=== PATIENT | female | born 1960 | race Two or more races ===

== ENCOUNTER 2018-02-01 17:01 | Emergency (ER) | payer OTHER ==
[~2018-02-01] VITALS: Ht 154.9 cm; Wt 45.9 kg
[2018-02-01] MEDS ORDERED: MEDROL DOSEPAK4 MG PO (20:34)
[2018-02-01] MEDS ORDERED: ROBAXIN750 MG PO (20:34)
[2018-02-01 22:47] VITALS: BP 126/74
== END 2018-02-01 22:48 | disposition home or self-care (01) ==
LOC: EME 17:01
DX: M48.56XA Collapsed vertebra, not elsewhere classified, lumbar region, initial encounter for fracture (principal); M54.16 Radiculopathy, lumbar region; Y93.H1 Activity, digging, shoveling and raking; F17.200 Nicotine dependence, unspecified, uncomplicated
CPT/HCPCS: 72131; 99281; 99283; J7512

== ENCOUNTER 2018-02-21 10:07 | Day surgery (SDC) | payer OTHER ==
[~2018-02-21] VITALS: Ht 154.9 cm; Wt 45.4 kg
[~2018-02-21 10:07] MED LIST: CALCIUM + D3 E1 EACH PO; MEDROL DOSEPAK4 MG PO; MULTIPLE VITAM1 EAC4 PO; ROBAXIN750 MG PO
[2018-02-21 10:25] VITALS: BP 128/68
[2018-02-21] MEDS ORDERED: NORCO 5/3251 TABLET PO (13:20)
[2018-02-21 14:20] VITALS: BP 145/64
[2018-02-21 15:19] VITALS: BP 166/72
== END 2018-02-21 15:40 | disposition home or self-care (01) ==
LOC: SDC 10:07
DX: S32.011A Stable burst fracture of first lumbar vertebra, initial encounter for closed fracture (principal); X50.3XXA Overexertion from repetitive movements, initial encounter; Y93.H1 Activity, digging, shoveling and raking; Y92.007 Garden or yard of unspecified non-institutional (private) residence as the place of occurrence of the external cause; F17.210 Nicotine dependence, cigarettes, uncomplicated
CPT/HCPCS: 72100; 76000; J0131; J0330; J0690; J1100; J1170; J2250; J2405; J2710; J7643